=== PATIENT | female | born 1995 | race Two or more races ===

== ENCOUNTER 2018-06-11 20:47 | Emergency (ER) | payer MEDICAID ==
[~2018-06-11] VITALS: Ht 172.7 cm; Wt 104.0 kg
[2018-06-11] MEDS ORDERED: SODIUM CHLORIDE 0.9% 1,000 ML IV ONE (23:56)
[2018-06-12] MEDS ORDERED: ONDANSETRON HCL 4MG/2ML INJ IV ONE
[2018-06-12 00:35] LABS: BASOPHILS % 0.2 % (0.0-2.0); HEMATOCRIT. 33.9 % (36.0-48.0); HEMOGLOBIN. 11.3 g/dL (12.0-16.0); LYMPHOCYTES % 24.3 % (20.0-50.0); MEAN CORPUSCULAR HEMOGLOBIN 28.6 pg (28.0-32.0); MEAN CORPUSCULAR VOLUME 85.7 fL (81.0-99.0); MEAN PLATELET VOLUME 7.9 fl (7.4-10.4); MONOCYTES % 8.2 % (2.0-8.0); NEUTROPHILS % 62.3 % (40.0-76.0); PLATELET 304 x1000/uL (130-400); RED BLOOD CELL COUNT 3.96 mill/uL (4.2-5.4); RED CELL DISTRIBUTION WIDTH 14.2 % (11.6-14.6)
[2018-06-12 00:43] LABS: CHLORIDE 105 mEq/L (98-107)
[2018-06-12 01:06] LABS: B-HCG QUANTITATIVE 79088 mIU/mL (<3)
[2018-06-12 01:11] LABS: CLARITY URINE CLOUDY (CLEAR); COLOR URINE YELLOW (YELLOW); KETONES URINE NEGATIVE (NEGATIVE); LEUKOCYTE ESTERASE URINE 3+ (NEGATIVE); NITRITE URINE NEGATIVE (NEGATIVE); OCCULT BLOOD URINE NEGATIVE (NEGATIVE); PH URINE 6.5 (4.5-8.0); PROTEIN URINE NEGATIVE (NEGATIVE); SPECIFIC GRAVITY URINE 1.002 (1.005-1.030); UROBILINOGEN URINE 0.2 E.U./dL (0.2-1.0)
[2018-06-12 03:00] VITALS: BP 100/56
== END 2018-06-12 03:08 | disposition home or self-care (01) ==
LOC: ER 20:47
DX: O26.891 Other specified pregnancy related conditions, first trimester (principal); O23.41 Unspecified infection of urinary tract in pregnancy, first trimester; Z3A.11 11 weeks gestation of pregnancy; Z90.49 Acquired absence of other specified parts of digestive tract
CPT/HCPCS: 36415; 76801; 80053; 81003; 81025; 84702; 85025; 86850; 86900; 86901; 87086; 96361; 96374; 99284; J2405; J7030

== ENCOUNTER 2018-07-05 10:01 | Emergency (ER) | payer MEDICAID ==
[~2018-07-05] VITALS: Ht 172.7 cm; Wt 104.0 kg
[2018-07-05] MEDS ORDERED: SODIUM CHLORIDE 0.9% 1,000 ML IV ONE (16:22)
[2018-07-05 17:16] LABS: BASOPHILS % 0.2 % (0.0-2.0); EOSINOPHILS % 2.6 % (0.0-5.0); HEMATOCRIT. 37.2 % (36.0-48.0); HEMOGLOBIN. 12.5 g/dL (12.0-16.0); LYMPHOCYTES % 18.3 % (20.0-50.0); MEAN CORPUSCULAR HEMOGLOBIN 29.1 pg (28.0-32.0); MEAN CORPUSCULAR VOLUME 86.5 fL (81.0-99.0); MEAN PLATELET VOLUME 8.3 fl (7.4-10.4); MONOCYTES % 6.2 % (2.0-8.0); NEUTROPHILS % 72.7 % (40.0-76.0); PLATELET 344 x1000/uL (130-400); RED CELL DISTRIBUTION WIDTH 14.9 % (11.6-14.6)
[2018-07-05 17:21] LABS: CHLORIDE 105 mEq/L (98-107)
[2018-07-05 17:25] LABS: CLARITY URINE TURBID (CLEAR); COLOR URINE YELLOW (YELLOW); KETONES URINE 1+ (NEGATIVE); LEUKOCYTE ESTERASE URINE 2+ (NEGATIVE); NITRITE URINE NEGATIVE (NEGATIVE); OCCULT BLOOD URINE NEGATIVE (NEGATIVE); PH URINE 8.5 (4.5-8.0); PROTEIN URINE NEGATIVE (NEGATIVE); SPECIFIC GRAVITY URINE 1.017 (1.005-1.030); UROBILINOGEN URINE 0.2 E.U./dL (0.2-1.0)
[2018-07-05 17:45] LABS: B-HCG QUANTITATIVE 54686 mIU/mL (<3)
[2018-07-05] MEDS ORDERED: CEFTRIAXONE 1 G PREMIX 50 ML IV ONE (17:45)
[2018-07-05 18:50] VITALS: BP 124/84
== END 2018-07-05 18:51 | disposition home or self-care (01) ==
LOC: ER 10:01
DX: O23.02 Infections of kidney in pregnancy, second trimester (principal); O20.0 Threatened abortion; O99.412 Diseases of the circulatory system complicating pregnancy, second trimester; I63.9 Cerebral infarction, unspecified; O26.892 Other specified pregnancy related conditions, second trimester; Z90.49 Acquired absence of other specified parts of digestive tract; Z3A.16 16 weeks gestation of pregnancy
CPT/HCPCS: 36415; 76705; 76805; 80053; 81003; 81025; 83690; 84702; 85025; 86850; 86900; 86901; 96361; 96365; 99284; J0696; J7030